=== PATIENT | female | born 1935 | race Caucasian/White ===

== ENCOUNTER 2017-07-30 20:24 | Emergency (ER) | payer MEDICARE, OTHER ==
[2017-07-30 21:05] LABS: Bilirubin Negative (Negative); Blood, Urine Negative (Negative); Clarity CLOUDY (Clear); Glucose, Urine (Dipstick) Negative (Negative); Leukocyte Moderate (Negative); Nitrite Positive (Negative); Protein, Urine (Dipstick) Negative (Neg-Trace); Specific Gravity, Urine 1.015 (1.002-1.036); Urobilinogen 0.2 mg/dL (0.2-1.0)
[2017-07-30 21:07] LABS: Bacteria/HPF 4+ HPF (None Seen); Hyaline Casts/LPF 0-3 HYALINE CAST LPF (0-3 Hyaline); Pathc Cast-AUWi Flag 0.13 (0-2.49); Squamous Epithelial 0-3 HPF (0-3); WBC/HPF 21-50 HPF (0-3)
[2017-07-30 21:13] LABS: Hemoglobin 14.3 g/dL (12.0-16.0); Mean Corpuscular HGB CONC 33.3 g/dL (32.0-36.0); Mean Corpuscular Hemoglobin 31.9 pg (27.0-31.0); Mean Corpuscular Volume 95.8 fl (81.0-99.0); Platelet Count 229 thou/uL (130-400); Red Blood Cell (RBC) Count 4.47 mill/uL (4.20-5.40); White Blood Cell (WBC) Count 5.7 thou/uL (4.8-10.8)
[2017-07-30 21:26] LABS: ALT (SGPT) 13 U/L (8-55); AST (SGOT) 13 U/L (5-34); Albumin 4.4 g/dL (3.4-4.8); Alkaline Phosphatase 96 U/L (40-150); Anion Gap 14 mmol/L (10-20); BUN (Urea Nitrogen) 13 mg/dL (9.8-20.1); Bilirubin, Total 0.6 mg/dL (0.2-1.2); CK (CPK) 32 U/L (29-168); Calc. Creatinine Clearance 0 mL/min (70-130); Calcium 10.8 mg/dL (7.8-10.44); Carbon Dioxide 26 mmol/L (23-31); Chloride 102 mmol/L (98-107); Estimated GFR-MDRD 73; Globulin 2.9 g/dL (2.4-3.5); Glucose 100 mg/dL (83-110); Potassium 4.9 mmol/L (3.5-5.1); Protein, Total 7.3 g/dL (6.0-8.3); Sodium 137 mmol/L (136-145)
[2017-07-30 21:30] LABS: Troponin I Less than 0.010 ng/mL (< 0.028)
[2017-07-30 21:44] LABS: Eosinophils 3 % (0-10); Lymphocytes 51 % (21-51); MDiff Complete? YES; Monocytes 4 % (0-10); Neutrophil 40 % (42-75); Reactive Lymphocytes 1 % (0-10)
[2017-07-30] MEDS ORDERED: cefTRIAXone\\ROCEPHIN 2 GM in Sodium Chloride 0.9% 100 ML IVPB SCH (23:45)
== END 2017-07-31 01:09 | disposition home or self-care (01) ==
LOC: ERS 20:24
DX: N39.0 Urinary tract infection, site not specified (principal); G62.9 Polyneuropathy, unspecified; E78.00 Pure hypercholesterolemia, unspecified; E11.9 Type 2 diabetes mellitus without complications
CPT/HCPCS: 36415; 80053; 81003; 81015; 82553; 84484; 85025; 87077; 87086; 87186; 93005; 96365; J0696; J7050

== ENCOUNTER 2017-08-05 11:14 | Inpatient (IN) | payer MEDICARE, OTHER ==
--- NOTE | 2017-08-05 12:18 | RAD ---
PORTABLE CHEST: History: Bradycardia and dizziness. FINDINGS: Heart size is within normal limits for portable technique. There are atherosclerotic changes of the a lane. Lungs are clear of any infiltrative process. IMPRESSION: Mild chronic lung change. Borderline heart size. POS: [facility]
[2017-08-05 12:48] LABS: #Lymphocytes 1.8 thou/uL (1.20-3.40); #Monocytes 0.4 thou/uL (0.11-0.59); %Basophils 0.7 % (0.0-1.0); %Eosinophils 0.8 % (0.0-10.0); %Lymphocytes 33.9 % (21.0-51.0); %Monocytes 7.2 % (0.0-10.0); %Neutrophils 57.3 % (42.0-75.0); Hemoglobin 12.6 g/dL (12.0-16.0); Mean Corpuscular HGB CONC 32.9 g/dL (32.0-36.0); Mean Corpuscular Hemoglobin 31.6 pg (27.0-31.0); Mean Corpuscular Volume 96.2 fl (81.0-99.0); Mean Platelet Volume 7.8 fL (7.4-10.4); Platelet Count 187 thou/uL (130-400); RBC Distribution Width 12.1 % (11.5-14.5); White Blood Cell (WBC) Count 5.2 thou/uL (4.8-10.8)
[2017-08-05] MEDS ORDERED: CEFAZOLIN 1 GM VIAL ONE ×2 (12:56)
--- NOTE | 2017-08-05 13:05 | HP ---
DATE OF ADMISSION: 08/05/2017 INDICATION FOR ADMISSION: An 82-year-old female with complete AV heart block with a heart rate in th e 30s. HISTORY OF PRESENT ILLNESS: This very pleasant 82-year-old female who was seen in her primary care p kandi's office today after having a recent urinary tract infection for which she was seen in the e mergency room last week. She had been on antibiotics and then she was noted to have bradycardia, was sent to the emergency room. EKG shows a third degree AV heart block with heart rates in the 30s. S he does not have any complaints at this time. She has been complaining of fatigue recently, but no c hest pain or any other significant problems. She does not have a history of hypertension, but does h ave a history of hypercholesterolemia and diabetes, no tobacco abuse. PAST MEDICAL HISTORY: Significant for a bilateral total knee replacements, hysterectomy, and diabete s for the last 20-25 years and history of Graves disease. SOCIAL HISTORY: She is a . She has 1 child with no heart disease except he has had some fast h eart rates in the past. I believe I have seen him also in the office. She has no history of alcohol or tobacco abuse. She is retired. FAMILY HISTORY: Unremarkable except for what is noted in the history her son. ALLERGIES: None. MEDICATIONS: Synthroid, metformin, aspirin, Lyrica and simvastatin. REVIEW OF SYSTEMS: A 12 point review of systems is unremarkable except what was noted in the history of present illness. She wears glasses. She has a chronic cough. She has diabetic neuropathy and a rthritis. PHYSICAL EXAMINATION: GENERAL: Reveals a well-developed, well-nourished, elderly female. VITAL SIGNS: Blood pressure 130/74, heart rate 35 and shows complete heart block, respiratory rate 1 6. She is afebrile. HEENT: Shows the head to be normocephalic, atraumatic. Carotid pulses are present. There are no br uits, no JVD. CHEST: Clear to auscultation without rales, rhonchi or wheezing. CARDIOVASCULAR: Exam reveals a severe bradycardia. I cannot hear any significant murmurs, heaves, t hrills, bruits or rubs. ABDOMEN: Shows obesity with positive bowel sounds. No organomegaly or masses are noted. Femoral pu lses are present. EXTREMITIES: Showed no clubbing, cyanosis or edema. Pedal pulses are present. NEUROLOGIC: The patient remains intact. SKIN: Warm and dry. EKG shows third degree heart block as noted above with a heart rate in the 30s. IMPRESSION: 1. A third degree heart block for which she will undergo urgent pacemaker implantation. I have disc ussed with her and explained the procedure and the risks to include bleeding, infection, possibility of pneumothorax, hemothorax or pericardial tamponade even the possibility of and infection. Jose Manuel curtis understands and agrees to proceed. 2. Hypercholesterolemia. We will continue on her simvastatin 3. Diabetes. She will continue on those medications with her metformin. 4. History of diabetic neuropathy for which she takes Lyrica. This will be filled by the primary ca re physician. 5. Hypothyroidism after having an episode of Graves' disease many years ago. She will continue on h er Synthroid once we know the normal doses of her medications. If she remains stable, there is a possibility after the pacemaker insertion she could be discharged l ater today or she could most likely spent the night and go home tomorrow.
[2017-08-05] MEDS ORDERED: Gentamicin 80 MG/2 ML VIAL ONE (13:13)
[2017-08-05] MEDS ORDERED: Lidocaine 1% (PF) 30 ML VIAL ONE (13:13)
[2017-08-05 13:16] LABS: ALT (SGPT) 12 U/L (8-55); AST (SGOT) 11 U/L (5-34); Albumin 3.9 g/dL (3.4-4.8); Alkaline Phosphatase 94 U/L (40-150); Anion Gap 15 mmol/L (10-20); BUN (Urea Nitrogen) 11 mg/dL (9.8-20.1); Bilirubin, Total 0.4 mg/dL (0.2-1.2); Calc. Creatinine Clearance 0 mL/min (70-130); Calcium 10.1 mg/dL (7.8-10.44); Carbon Dioxide 21 mmol/L (23-31); Chloride 101 mmol/L (98-107); Estimated GFR-MDRD 78; Globulin 2.5 g/dL (2.4-3.5); Glucose 116 mg/dL (83-110); Potassium 4.6 mmol/L (3.5-5.1); Protein, Total 6.4 g/dL (6.0-8.3); Sodium 132 mmol/L (136-145)
[2017-08-05 13:22] LABS: CKMB 1.5 ng/mL (0-6.6); Troponin I 0.022 ng/mL (< 0.028)
[2017-08-05] MEDS ORDERED: Spironolactone 25 MG TAB PO PRN (15:43)
[2017-08-05] MEDS: metFORMIN 500 MG TAB PO SCH (18:01)
--- NOTE | 2017-08-05 18:08 | RAD ---
PORTABLE CHEST: 08/05/17 HISTORY: Post pacemaker placement. Comparison made to film earlier today. FINDINGS/IMPRESSION: Dual lead pacemaker is in place via the left subclavian vein. Leads appear in adequate position. No p neumothorax or other acute lung process identified. No significant interval change. POS: [facility]
[2017-08-05 19:26] VITALS: BMI 31.3
[2017-08-05] MEDS: Acetaminophen/Codeine 30-300mg Tablet PO PRN (20:26)
[2017-08-05] MEDS: Phenazopyridine HCl 97.5 MG TABLET PO SCH (20:38)
[2017-08-05] MEDS ORDERED: FLU VACC TS2017-18 (>65YR) 0.5 ML SYRINGE IM ONE (20:45)
[2017-08-05] MEDS ORDERED: Simvastatin 40 MG TAB PO SCH (21:00)
--- NOTE | 2017-08-05 21:50 | EKG ---
Test Reason : POST PACEMAKER INSER Blood Pressure : / mmHG Vent. Rate : 082 BPM Atrial Rate : 079 BPM P-R Int : 088 ms QRS Dur : 186 ms QT Int : 480 ms P-R-T Axes : 000 -64 105 degrees QTc Int : 560 ms AV sequential or dual chamber electronic pacemaker When compared with ECG of 30-JUL-2017 20:33, (Unconfirmed) Electronic ventricular pacemaker has replaced Sinus rhythm Confirmed by JOAQUIN KERR ([id number]) on 08/05/2017 9:50:13 PM Referred By: LEAH Confirmed By:JOAQUIN KERR
[2017-08-05 23:13] LABS: Bilirubin Negative (Negative); Blood, Urine Negative (Negative); Clarity CLEAR (Clear); Glucose, Urine (Dipstick) Negative (Negative); Leukocyte Negative (Negative); Nitrite Negative (Negative); Protein, Urine (Dipstick) Negative (Neg-Trace); Urobilinogen 0.2 mg/dL (0.2-1.0)
[2017-08-06] MEDS: Acetaminophen/Codeine 30-300mg Tablet PO PRN (01:38)
[2017-08-06] MEDS ORDERED: Levothyroxine 175 MCG TAB PO SCH (06:00)
--- NOTE | 2017-08-06 08:36 | PDOC.CTH ---
<Nataly Raya - Last Filed: 08/06/17 08:32> Cardiology Progress Note - Subjective The pt seen and examined. No overnight events. No cardiac complaints. She stated she has a sling at home and would like to use it at night to prevent raising her Lt arm above her shoulder. She lives alone at home. - Objective Vital Signs Temp Pulse Resp BP Pulse Ox 08/06/17 07:54 98.1 F 79 16 138/74 99 08/06/17 03:47 98.2 F 81 18 128/61 99 08/06/17 00:00 97.9 F 81 14 133/62 98 Weight 199 lb 14.4 oz 08/05/17 08/06/17 08/07/17 06:59 06:59 06:59 Intake Total 600 Balance 600 - Physical Examination General/Neuro: alert & oriented x3 Neck: no JVD present Lungs: CTA Heart: RRR Abdomen: soft Extremities: other: (No edema) - Telemetry Telemetry Rhythm: AV paced - Labs Result Diagrams: 08/05/17 12:35 08/05/17 12:35 Troponin/CKMB CK-MB (CK-2) 1.5 ng/mL (0-6.6) 08/05/17 12:35 Troponin I 0.022 ng/mL (< 0.028) 08/05/17 12:35 - Assessment/Plan 1. S/p Dual PM placement on 08/05/17 secondary to complete AVB - stable; no pnuemothrax on CXR. Mild hematoma with no swelling or drainage. She denied any pain at the site. 2. Hyperlipidemia - on statin 3. DM type 2 - stable 4. Hypothyroidism - on Levothyroxin; MAR reviewed * The pt is stable to d/c home. [employer] will call the pt within 2 days for [employer] device. * The pt will f/u with nurse @ Dr Allen' office within 7-10 days for the PM site check * PM education given to the pt Review of Systems - Review of Systems Constitutional: reports: no symptoms reported EENTM: reports: no symptoms reported Respiratory: reports: no symptoms reported Cardiac (ROS): reports: no symptoms reported ABD/GI: reports: no symptoms reported : reports: no symptoms reported Musculoskeletal: reports: no symptoms reported <Chiqui Allen - Last Filed: 08/06/17 09:48> Cardiology Progress Note - Objective Vital Signs Temp Pulse Resp BP Pulse Ox 08/06/17 08:00 98.1 F 79 16 99 08/06/17 07:54 98.1 F 79 16 138/74 99 08/06/17 03:47 98.2 F 81 18 128/61 99 08/06/17 00:00 97.9 F 81 14 133/62 98 Weight 199 lb 14.4 oz 08/05/17 08/06/17 08/07/17 06:59 06:59 06:59 Intake Total 600 Balance 600 - Labs Result Diagrams: 08/05/17 12:35 08/05/17 12:35 Troponin/CKMB CK-MB (CK-2) 1.5 ng/mL (0-6.6) 08/05/17 12:35 Troponin I 0.022 ng/mL (< 0.028) 08/05/17 12:35 - Assessment/Plan pt. seen and eval. by me. i agree with the A/P by the SL[employer] AMBASS[employer]OR. She is pacing 100% in the A and V. chest clear,RRR. I will see her in a week in the office,
[2017-08-06] MEDS: metFORMIN 500 MG TAB PO SCH (08:42)
[2017-08-06] MEDS: Phenazopyridine HCl 97.5 MG TABLET PO SCH (08:42)
[2017-08-06] MEDS ORDERED: Pregabalin 75 MG CAP PO SCH (09:00)
[2017-08-06] MEDS ORDERED: Aspirin 81 mg Enteric Coated Tablet PO SCH (09:00)
[2017-08-06] MEDS ORDERED: Prevnar 13-Val Conj/PF 0.5 ML SYRINGE IM ONE (09:00)
[2017-08-06] MEDS ORDERED: Furosemide 20 MG TAB PO SCH (09:00)
[2017-08-06 11:38] VITALS: BP 138/69; TEMP 97.9
--- NOTE | 2017-08-06 14:13 | DIS ---
ADMITTING DIAGNOSES: Complete third-degree arteriovenous heart block which was required. Otherwise, she has a history also of a recent urinary tract infection, history of hypertension. DISCHARGE DIAGNOSES: Complete third-degree arteriovenous heart block which was required. Otherwise, she has a history also of a recent urinary tract infection, history of hypertension. PROCEDURES IN HOSPITAL: Included dual-chamber pacemaker insertion. DISCHARGE MEDICATIONS: Tylenol Extra Strength 1-2 tablets q.6 h. p.r.n. for pain, aspirin 81 mg a da y, Lasix 20 mg p.o. q.a.m., levothyroxine 175 mcg every day, metformin 500 mg b.i.d. Pyridium 195 mg 3 times daily, Lyrica 75 mg p.o. daily, simvastatin 40 mg at bedtime, Aldactone 25 mg p.o. daily p.r. n. as needed. FOLLOW UP: To follow up with me in the office in the next 7-10 days for wound check. She will recei ve information on equipment by mail to check her pacemaker over the telephone. She will continue her routine followups with Dr. Castelan. HOSPITAL COURSE: This very pleasant, elderly lady presented to her primary care physician's office w ith severe bradycardia. She was advised to go to the emergency room, she actually drove herself to [facility]. When she arrived, she had heart rates into the 30s with complete AV heart block. She w as advised to undergo urgent pacemaker insertion. This was performed without difficulties or complic ations. There was no pneumothorax or hemothorax noted on the chest x-ray. She has been stable. She is pacing 100% after the procedure, both in the atrium and ventricle and has had no further complica tions. She is ready for discharge today and I will see her back in the office as noted above to cont inue to monitor the pacemaker which will also be monitored transtelephonically. There was no complic ations or difficulties throughout her hospital stay.
--- NOTE | 2017-08-08 09:24 | EKG ---
Test Reason : Blood Pressure : / mmHG Vent. Rate : 080 BPM Atrial Rate : 080 BPM P-R Int : 200 ms QRS Dur : 180 ms QT Int : 478 ms P-R-T Axes : 066 -63 102 degrees QTc Int : 551 ms AV sequential or dual chamber electronic pacemaker When compared with ECG of 05-AUG-2017 15:49, Vent. rate has decreased BY 2 BPM Confirmed by JOAQUIN KERR ([id number]) on 08/08/2017 9:23:43 AM Referred By: LEAH Confirmed By:JOAQUIN KERR
--- NOTE | 2017-09-04 17:45 | EKG ---
Test Reason : ER NDICATION Blood Pressure : / mmHG Vent. Rate : 034 BPM Atrial Rate : 038 BPM P-R Int : 000 ms QRS Dur : 084 ms QT Int : 504 ms P-R-T Axes : 052 028 102 degrees QTc Int : 378 ms Complete Heart Block Abnormal ECG Confirmed by JULIAN SHETTY MD ([id number]), writer editor [employer] ([id number]) on 09/04/2017 5:45:20 PM Referred By: Confirmed By:JULIAN SHETTY MD
== END 2017-08-06 13:05 | disposition home or self-care (01) | DRG 244 ==
LOC: ERS 11:14 → 2NO 12:52 → CCL 12:52 → ERHOLD 14:06 → 2NO 14:45
PROVIDERS: ADMIT Internal Medicine Cardiovascular Disease; ATTEND Internal Medicine Cardiovascular Disease
PROC: 0JH606Z Insertion of Pacemaker, Dual Chamber into Chest Subcutaneous Tissue and Fascia, Open Approach (ICD-10-PCS; principal; 2017-08-05)
PROC: 02H63JZ Insertion of Pacemaker Lead into Right Atrium, Percutaneous Approach (ICD-10-PCS; 2017-08-05)
PROC: 02HK3JZ Insertion of Pacemaker Lead into Right Ventricle, Percutaneous Approach (ICD-10-PCS; 2017-08-05)
DX: I44.2 Atrioventricular block, complete (principal); E11.40 Type 2 diabetes mellitus with diabetic neuropathy, unspecified; E78.5 Hyperlipidemia, unspecified; E03.9 Hypothyroidism, unspecified
CPT/HCPCS: 33208; 36415; 36416; 71045; 80053; 81003; 82553; 84484; 85025; 87086; 90471; 90670; 93005; 93010; 93798; C1785; C1898; G0009; J0690; J1580; J2001

== ENCOUNTER 2017-10-07 13:36 | Outpatient (CLI) | payer MEDICARE, OTHER ==
--- NOTE | 2017-10-07 14:38 | RAD ---
TWO VIEWS OF THE CHEST: COMPARISON: 08/05/17. HISTORY: Dyspnea. FINDINGS: Two views of the chest show a normal-size cardiomediastinal silhouette. The pacemaker is unchanged i n position. There is no evidence of consolidation, mass, or pleural effusion. Degenerative changes are seen in the spine. IMPRESSION: No evidence of acute cardiopulmonary disease. POS: [facility]
== END 2017-10-07 13:37 | disposition home or self-care (01) ==
LOC: RAD 13:36
PROVIDERS: ATTEND Internal Medicine Critical Care Medicine
DX: R06.00 Dyspnea, unspecified (principal)
CPT/HCPCS: 71046

== ENCOUNTER 2017-10-12 10:55 | Emergency (ER) | payer MEDICARE, OTHER ==
[2017-10-12 12:19] LABS: #Basophils 0.1 thou/uL (0.0-0.2); #Lymphocytes 1.8 thou/uL (1.20-3.40); #Monocytes 0.9 thou/uL (0.11-0.59); #Neutrophils 5.1 thou/uL (1.40-6.50); %Basophils 0.8 % (0.0-1.0); %Eosinophils 0.4 % (0.0-10.0); %Lymphocytes 22.4 % (21.0-51.0); %Monocytes 11.2 % (0.0-10.0); %Neutrophils 65.1 % (42.0-75.0); Hemoglobin 13.2 g/dL (12.0-16.0); Mean Corpuscular HGB CONC 33.5 g/dL (32.0-36.0); Mean Corpuscular Volume 92.4 fl (81.0-99.0); Mean Platelet Volume 6.4 fL (7.4-10.4); Platelet Count 177 thou/uL (130-400); RBC Distribution Width 12.2 % (11.5-14.5); Red Blood Cell (RBC) Count 4.25 mill/uL (4.20-5.40); White Blood Cell (WBC) Count 7.9 thou/uL (4.8-10.8)
[2017-10-12 12:47] LABS: ALT (SGPT) 10 U/L (8-55); AST (SGOT) 12 U/L (5-34); Albumin 3.8 g/dL (3.4-4.8); Alkaline Phosphatase 102 U/L (40-150); Anion Gap 13 mmol/L (10-20); BUN (Urea Nitrogen) 14 mg/dL (9.8-20.1); Bilirubin, Total 0.6 mg/dL (0.2-1.2); CK (CPK) 95 U/L (29-168); Calc. Creatinine Clearance 0 mL/min (70-130); Calcium 10.1 mg/dL (7.8-10.44); Carbon Dioxide 22 mmol/L (23-31); Chloride 102 mmol/L (98-107); Estimated GFR-MDRD 73; Glucose 164 mg/dL (83-110); Lipase 6 U/L (8-78); Protein, Total 6.8 g/dL (6.0-8.3); Sodium 133 mmol/L (136-145)
[2017-10-12 12:53] LABS: CKMB 1.7 ng/mL (0-6.6); Troponin I Less than 0.010 ng/mL (< 0.028)
--- NOTE | 2017-10-12 13:22 | RAD ---
CHEST 1 VIEW: Date: 10/12/17 HISTORY: Body aches, chest pain. COMPARISON: Chest 2 views dated 10/07/17. FINDINGS: Dual lead pacer is present. Mild blunting left lateral costophrenic sulcus. No pneumothorax. Lungs ar e slightly hyperinflated. IMPRESSION: Mild blunting left lateral costophrenic sulcus may reflect sequelae of small effusion or atelectasis. POS: [facility]
[2017-10-12 13:59] LABS: Bilirubin Negative (Negative); Blood, Urine Small (Negative); Clarity CLOUDY (Clear); Glucose, Urine (Dipstick) Negative (Negative); Leukocyte Large (Negative); Nitrite Positive (Negative); Protein, Urine (Dipstick) 30 mg/dL (Neg-Trace); Specific Gravity, Urine 1.023 (1.002-1.036)
[2017-10-12 14:04] LABS: Bacteria/HPF 4+ HPF (None Seen); Hyaline Casts/LPF 4-6 HYALINE CAST LPF (0-3 Hyaline); Pathc Cast-AUWi Flag 1.16 (0-2.49); Squamous Epithelial 0-3 HPF (0-3)
[2017-10-12 14:13] LABS: RBC/HPF 0-3 HPF (0-3)
[2017-10-12] MEDS ORDERED: Ciprofloxacin 500 MG TAB ONE (14:34)
--- NOTE | 2017-11-20 22:22 | EKG ---
Test Reason : Blood Pressure : / mmHG Vent. Rate : 085 BPM Atrial Rate : 085 BPM P-R Int : 146 ms QRS Dur : 178 ms QT Int : 444 ms P-R-T Axes : 000 -58 101 degrees QTc Int : 528 ms AV dual-paced rhythm No STEMI Abnormal ECG Confirmed by KARIS SIMMONS D.O. ([id number]), market editor [employer] ([id number]) on 11/20/2017 10:22:20 PM Referred By: Confirmed By:KARIS SIMMONS D.O.
== END 2017-10-12 14:45 | disposition home or self-care (01) ==
LOC: ERS 10:55
DX: N39.0 Urinary tract infection, site not specified (principal); E11.40 Type 2 diabetes mellitus with diabetic neuropathy, unspecified; Z79.82 Long term (current) use of aspirin; Z79.899 Other long term (current) drug therapy
CPT/HCPCS: 36415; 71045; 80053; 81003; 81015; 82550; 82553; 83690; 84484; 85025; 93005; 94760

== ENCOUNTER 2018-06-03 12:26 | Emergency (ER) | payer MEDICARE, OTHER ==
--- NOTE | 2018-06-03 13:50 | RAD ---
3 VIEW LUMBAR SPINE: Date: 06/03/18 INDICATION: Low back pain, hip pain. FINDINGS: Reference made to 08/10/16. No obvious interval acute compression fracture. Skeletal structures appear demineralized. No obvious subluxation. Multilevel moderate degenerative change present. There is atherosclerosis. Mild levocurv ature of lumbar spine present. IMPRESSION: Degenerative changes and osseous demineralization. No definite acute compression fracture or signific ant subluxation. POS: [facility]
[2018-06-03] MEDS ORDERED: Ketorolac Tromethamine 30 MG/ML VIAL ONE (13:51)
--- NOTE | 2018-06-03 13:51 | RAD ---
AP PELVIS 1 VIEW: Date: 06/03/18 HISTORY: 83-year-old female with low back pain and right hip pain. History of spinal stenosis and diabetes. FINDINGS/IMPRESSION: Mild degenerative change. Bone demineralization. No acute fracture or dislocation. POS: [facility]
--- NOTE | 2018-06-03 13:51 | RAD ---
RIGHT HIP SERIES: Date: 06/03/18 INDICATION: Right hip pain. FINDINGS: No fracture or dislocation. Mild degenerative change is present. IMPRESSION: No acute osseous abnormality of right hip. POS: [facility]
== END 2018-06-03 14:26 | disposition home or self-care (01) ==
LOC: ERS 12:26
DX: M25.551 Pain in right hip (principal); M54.5 Low back pain; E11.40 Type 2 diabetes mellitus with diabetic neuropathy, unspecified; E78.00 Pure hypercholesterolemia, unspecified; Z79.899 Other long term (current) drug therapy; Z79.82 Long term (current) use of aspirin; Z79.84 Long term (current) use of oral hypoglycemic drugs
CPT/HCPCS: 72100; 72170; 96372; J1885

== ENCOUNTER 2018-07-29 07:10 | Day surgery (SDC) | payer MEDICARE, OTHER ==
[2018-07-28 12:27] VITALS: BMI 30.5
[2018-07-29 08:35] VITALS: BP 126/82; TEMP 97.6
--- NOTE | 2018-07-29 09:56 | RAD ---
LUMBAR MYELOGRAM: HISTORY: Low back pain with radiculopathy. FINDINGS: After explaining the procedure and answering all questions, the lower back was prepped and draped in the usual sterile fashion. Sterile technique, buffered local anesthesia, fluoroscopic guidance, and a posterior L1-L2 approach were used to carefully advance a 22-gauge spinal needle to the thecal sac. Approximately 10 mL of [id number]-200M was then injected into the thecal sac, under fluoroscopic contro l. The needle was removed. The patient tolerated the procedure well and was transferred to CT in go od condition for further imaging. FLUOROSCOPY TIME: 0.4 minutes IMPRESSION: Technically successful lumbar myelogram. CT is pending. POS: [facility]
--- NOTE | 2018-07-29 10:38 | CT ---
CT MYELOGRAM OF LUMBAR SPINE WITH CONTRAST: INDICATIONS: Lumbar radiculopathy. FINDINGS: Please reference the procedural details regarding the report of the technical parameters of the lumba r myelogram. There is mild, likely chronic, superior endplate height loss of L1. Multilevel endplate degenerative changes are present, and there is multilevel gas vacuum phenomenon. Grade 1 spondylolisthesis at L4 -L5 is present, and there is trace retrolisthesis of L1 on L2. L5-S1: No high-grade central canal or foraminal stenosis. L4-L5: Disk osteophyte mildly effaces the ventral thecal sac without high-grade central canal stenos is. There is mild to moderate bilateral neural foraminal narrowing. L3-L4: There is moderate central canal stenosis, as a result of disk osteophyte formation. Mild danyelle ateral neural foraminal narrowing is seen. L2-L3: There is moderate to severe central canal stenosis on the basis of broad-based disk osteophyt e. Moderate right and mild left neural foraminal narrowing is present. L1-L2: No high-grade central canal or neural foraminal stenosis. Slight effacement of the thecal sa c due to disk osteophyte. There is multilevel prominent bilateral facet degenerative hypertrophy throughout the lumbar spine. Incidental note of hypodensity in the right kidney, likely a cyst. IMPRESSION: Multilevel degenerative changes throughout the lumbar spine, most pronounced at L2-L3, with moderate central canal stenosis. POS: [facility]
[2018-07-29] MEDS ORDERED: Iopamidol-M 200 41% 20 ML VIAL ONE (16:32)
== END 2018-07-29 10:15 | disposition home or self-care (01) ==
LOC: RAD 07:10
PROVIDERS: ATTEND Neurological Surgery
PROC: B01B1ZZ Fluoroscopy of Spinal Cord using Low Osmolar Contrast (ICD-10-PCS; principal; 2018-07-29)
DX: M54.16 Radiculopathy, lumbar region (principal); Z91.09 Other allergy status, other than to drugs and biological substances; Z88.1 Allergy status to other antibiotic agents; Z79.84 Long term (current) use of oral hypoglycemic drugs; Z79.82 Long term (current) use of aspirin; Z79.899 Other long term (current) drug therapy
CPT/HCPCS: 62304; 72132; Q9966

== ENCOUNTER 2018-09-13 09:16 | Outpatient (CLI) | payer MEDICARE, OTHER ==
--- NOTE | 2018-09-13 10:51 | ULT ---
RIGHT UPPER QUADRANT ULTRASOUND: INDICATIONS: Hepatic cyst. Followup. FINDINGS: There are scattered foci of decreased echogenicity within the hepatic parenchyma, the largest of whic h measures approximately 3 cm. In addition, there is a focus of increased echogenicity with an adjac ent punctate calcification within the central region of the liver, which measures 1.7 x 2.2 cm x a le ngth of 4.3 cm. The common duct is within normal limits in size for the patient's age, at 7 mm. No acute gallbladder pathology is visualized. Incidental note of right renal cyst. IMPRESSION: Scattered foci of decreased echogenicity of the hepatic parenchyma, indicating cyst, with an addition al nonspecific hyperechoic focus. Findings may be further assessed with pre and post contrast CT of the abdomen. POS: [facility]
--- NOTE | 2018-09-19 13:21 | MMO ---
Bilateral MAMMO Bilat Screen [facility]. CLINICAL HISTORY: Patient is 83 years old and is seen for screening. The patient has no family history of breast cancer. The patient has no personal history of cancer. The patient has a history of right Excisional Biopsy in Jun 2002 - Benign. VIEWS: The views performed were: bilateral craniocaudal with tomosynthesis and bilateral mediolateral oblique with tomosynthesis. FILMS COMPARED: The present examination has been compared to prior imaging studies performed at [facility] on 06/23/2001, 06/26/2002, 12/25/2002, 06/27/2003, 07/01/2004, 07/09/2005, 07/19/2006, 07/20/2007, 07/26/2008, 07/29/2009, 08/05/2010, 07/29/2011, 08/09/2012, 08/10/2013, 08/14/2014, 08/15/2015 and 08/25/2016. MAMMOGRAM FINDINGS: There are scattered fibroglandular densities. Finding 1: There are stable nodules seen in both breasts. Finding 2: There are benign appearing calcifications seen in both breasts. Finding 3: There is a stable post-surgical scar seen in the right breast. There are no suspicious masses, calcifications or areas of architectural distortion. IMPRESSION: THERE IS NO MAMMOGRAPHIC EVIDENCE OF MALIGNANCY. A ROUTINE FOLLOW-UP MAMMOGRAM IN 1 YEAR IS RECOMMENDED. THE RESULTS OF THIS EXAM WERE SENT TO THE PATIENT. ACR BI-RADS Category 2 - Benign finding MAMMOGRAPHY NOTE: 1. A negative mammogram report should not delay a biopsy if a dominant of clinically suspicious mass is present. 2. Approximately 10% to 15% of breast cancers are not detected by mammography. 3. Adenosis and dense breasts may obscure an underlying neoplasm.
== END 2018-09-13 09:17 | disposition home or self-care (01) ==
LOC: BICULT 09:16
PROVIDERS: ATTEND Internal Medicine
DX: Z12.31 Encounter for screening mammogram for malignant neoplasm of breast (principal); K76.89 Other specified diseases of liver; R93.2 Abnormal findings on diagnostic imaging of liver and biliary tract
CPT/HCPCS: 76705; 77063; 77067

== ENCOUNTER 2019-01-10 10:01 | Outpatient (CLI) | payer MEDICARE, OTHER ==
--- NOTE | 2019-01-10 12:17 | RAD ---
CHEST PA AND LATERAL: Date: 01/10/19 INDICATION: History of dyspnea. COMPARISON: Prior exam dated 10/07/17. FINDINGS: Emphysematous change is stable. Dual lead pacemaker is unchanged. Mild cardiomegaly is stable. Chroni c osseous changes are stable. IMPRESSION: Stable emphysema. POS: [facility]
== END 2019-01-10 10:02 | disposition home or self-care (01) ==
LOC: RAD 10:01
PROVIDERS: ATTEND Internal Medicine Critical Care Medicine
DX: R06.00 Dyspnea, unspecified (principal); J43.9 Emphysema, unspecified
CPT/HCPCS: 71046

== ENCOUNTER 2019-10-26 10:08 | Outpatient (CLI) | payer MEDICARE, OTHER ==
--- NOTE | 2019-10-26 11:09 | MMO ---
Bilateral MAMMO Bilat Screen [facility]. CLINICAL HISTORY: Patient is 84 years old and is seen for screening. The patient has no family history of breast cancer. The patient has no personal history of cancer. The patient has a history of right Excisional Biopsy in Jun 2002 - Benign. VIEWS: The views performed were: bilateral craniocaudal with tomosynthesis; bilateral mediolateral oblique with tomosynthesis; and left mediolateral oblique. FILMS COMPARED: The present examination has been compared to prior imaging studies performed at [facility] on 08/14/2014, 08/15/2015, 08/25/2016 and 09/13/2018. This study has been interpreted with the assistance of computer-aided detection. MAMMOGRAM FINDINGS: Finding 1: There are stable nodules seen in both breasts. Finding 2: There are benign appearing calcifications seen in both breasts. Finding 3: There is a stable post-surgical scar seen in the right breast. There are no suspicious masses, suspicious calcifications, or new areas of architectural distortion. IMPRESSION: THERE IS NO MAMMOGRAPHIC EVIDENCE OF MALIGNANCY. A ROUTINE FOLLOW-UP MAMMOGRAM IN 1 YEAR IS RECOMMENDED. THE RESULTS OF THIS EXAM WERE SENT TO THE PATIENT. ACR BI-RADS Category 2 - Benign finding MAMMOGRAPHY NOTE: 1. A negative mammogram report should not delay a biopsy if a dominant of clinically suspicious mass is present. 2. Approximately 10% to 15% of breast cancers are not detected by mammography. 3. Adenosis and dense breasts may obscure an underlying neoplasm. Reported by: Gabriele GORMAN Electonically Signed: [id number]
== END 2019-10-26 10:09 | disposition home or self-care (01) ==
LOC: BICMAMMO 10:08
PROVIDERS: ATTEND Internal Medicine
DX: Z12.31 Encounter for screening mammogram for malignant neoplasm of breast (principal); Z91.89 Other specified personal risk factors, not elsewhere classified
CPT/HCPCS: 77063; 77067

== ENCOUNTER 2020-09-19 10:08 | Outpatient (CLI) | payer MEDICARE, OTHER ==
[2020-09-19 12:41] LABS: Bilirubin Neg (Negative); Blood, Urine Negative (Negative); Clarity Slightly Cloudy (Clear); Glucose, Urine (Dipstick) Normal (Negative); Ketone, Urine Negative (Negative); Leukocyte 100 (Negative); Nitrite Positive (Negative); Protein, Urine (Dipstick) Negative (Neg-Trace); Urobilinogen Normal mg/dL (Less than 2)
[2020-09-19 12:42] LABS: Anion Gap 14 mmol/L (10-20); BUN (Urea Nitrogen) 16 mg/dL (9.8-20.1); Calc. Creatinine Clearance 0 mL/min (70-130); Calcium 10.1 mg/dL (7.8-10.44); Carbon Dioxide 23 mmol/L (23-31); Chloride 106 mmol/L (98-107); Glucose 184 mg/dL (83-110); Potassium 3.9 mmol/L (3.5-5.1); Sodium 139 mmol/L (136-145)
[2020-09-19 12:43] LABS: #Basophils 0.1 10x3/uL (0.0-0.2); #Eosinphils 0.2 10x3/uL (0.0-0.5); #Monocytes 0.3 10x3/uL (0.0-1.1); #Neutrophils 2.3 10x3/uL (1.5-8.4); %Basophils 1.5 % (0.0-2.0); %Eosinophils 4.7 % (0.0-6.0); %Lymphocytes 38.5 % (18.0-47.0); %Monocytes 6.4 % (0.0-10.0); %Neutrophils 48.7 % (40.0-75.0); Hemoglobin 12.2 g/dL (12.0-15.5); Mean Corpuscular HGB CONC 32.3 g/dL (32.0-36.0); Mean Corpuscular Volume 95.9 fl (81.6-98.3); Platelet Count 182 10x3/uL (150-450); RBC Distribution Width 13.3 % (11.5-14.5); Red Blood Cell (RBC) Count 3.94 10x6/uL (3.90-5.03); White Blood Cell (WBC) Count 4.7 10x3/uL (3.5-10.5)
[2020-09-19 13:24] LABS: Bacteria/HPF 3+ HPF (None Seen); Calcium Oxalate Crystals 1+ HPF (None Seen); RBC/HPF 0-3 HPF (0-3); Squamous Epithelial 0-3 HPF (0-3)
[2020-09-19 22:32] LABS: SARS-CoV-2 PCR by NAA Not Detected (NotDetected)
== END 2020-09-19 10:09 | disposition home or self-care (01) ==
LOC: LABBT 10:08
PROVIDERS: ATTEND Orthopaedic Surgery Hand Surgery
DX: Z01.818 Encounter for other preprocedural examination (principal); M65.332 Trigger finger, left middle finger; M65.342 Trigger finger, left ring finger; Z20.822 Contact with and (suspected) exposure to COVID-19
CPT/HCPCS: 80048; 81001; 85025; 93005; U0003; U0005; 87635; 93010

== ENCOUNTER 2020-09-24 08:01 | Day surgery (SDC) | payer MEDICARE, OTHER ==
[2020-09-20 13:38] VITALS: BMI 30.5
[2020-09-24] MEDS ORDERED: Betamet Acet/Betamet Na Ph 30 MG/5 ML VIAL ONE (09:40)
[2020-09-24] MEDS ORDERED: Bupivacaine PF 0.5% 30 ML VIAL ONE (09:40)
[2020-09-24] MEDS ORDERED: Bacitracin Zinc Ointment 30 gm TUBE ONE (09:40)
[2020-09-24] MEDS ORDERED: Sodium Chloride 0.9% 0 ML ONE (09:40)
[2020-09-24] MEDS ORDERED: Fentanyl 100 MCG/2 ML VIAL ONE (09:48)
[2020-09-24] MEDS ORDERED: PROPOFOL 200 MG/20 ML VIAL ONE (10:10)
[2020-09-24] MEDS ORDERED: Lidocaine 1% PF 5 ML VIAL ONE (10:10)
[2020-09-24] MEDS ORDERED: Ondansetron PF 4 MG/2 ML Vial ONE (10:10)
[2020-09-24] MEDS ORDERED: Ketorolac Tromethamine 30 MG/ML VIAL ONE (11:12)
== END 2020-09-24 12:45 | disposition home or self-care (01) ==
LOC: SDC 08:01
PROVIDERS: ATTEND Orthopaedic Surgery Hand Surgery
PROC: 0LB80ZZ Excision of Left Hand Tendon, Open Approach (ICD-10-PCS; principal; 2020-09-24)
PROC: 0LB80ZZ Excision of Left Hand Tendon, Open Approach (ICD-10-PCS; 2020-09-24)
DX: M65.842 Other synovitis and tenosynovitis, left hand (principal); M65.332 Trigger finger, left middle finger; M65.342 Trigger finger, left ring finger; E11.9 Type 2 diabetes mellitus without complications; E78.5 Hyperlipidemia, unspecified; E03.9 Hypothyroidism, unspecified; M19.90 Unspecified osteoarthritis, unspecified site; Z79.82 Long term (current) use of aspirin; Z79.84 Long term (current) use of oral hypoglycemic drugs; Z79.899 Other long term (current) drug therapy; Z88.1 Allergy status to other antibiotic agents; Z91.048 Other nonmedicinal substance allergy status; Z95.0 Presence of cardiac pacemaker; Z96.651 Presence of right artificial knee joint
CPT/HCPCS: 88304; J0690; J0702; J1885; J2405; J2704; J3010; J3490; S0020

== ENCOUNTER 2020-12-30 14:27 | Emergency (ER) | payer MEDICARE, OTHER ==
[2020-12-30 17:05] LABS: #Basophils 0.1 thou/uL (0.0-0.2); #Eosinphils 0.1 thou/uL (0.0-0.7); #Lymphocytes 2.9 thou/uL (1.20-3.40); #Monocytes 0.4 thou/uL (0.11-0.59); #Neutrophils 2.4 thou/uL (1.40-6.50); %Basophils 0.9 % (0.0-1.0); %Eosinophils 2.1 % (0.0-10.0); %Lymphocytes 48.4 % (21.0-51.0); %Monocytes 7.4 % (0.0-10.0); %Neutrophils 41.3 % (42.0-75.0); Mean Corpuscular HGB CONC 33.3 g/dL (32.0-36.0); Mean Corpuscular Hemoglobin 32.2 pg (27.0-31.0); Mean Corpuscular Volume 96.8 fL (78.0-98.0); Mean Platelet Volume 7.6 fL (7.4-10.4); Platelet Count 184 thou/uL (130-400); RBC Distribution Width 12.6 % (11.5-14.5); Red Blood Cell (RBC) Count 4.04 mill/uL (4.20-5.40); White Blood Cell (WBC) Count 5.9 thou/uL (4.8-10.8)
[2020-12-30 17:19] LABS: ALT (SGPT) 14 U/L (8-55); AST (SGOT) 12 U/L (5-34); Alkaline Phosphatase 109 U/L (40-110); Anion Gap 15 mmol/L (10-20); BUN (Urea Nitrogen) 12 mg/dL (9.8-20.1); Bilirubin, Total 0.3 mg/dL (0.2-1.2); CK (CPK) 41 U/L (29-168); Calc. Creatinine Clearance 0 mL/min (70-130); Calcium 10.1 mg/dL (7.8-10.44); Carbon Dioxide 19 mmol/L (23-31); Chloride 107 mmol/L (98-107); Globulin 2.7 g/dL (2.4-3.5); Glucose 114 mg/dL (83-110); Potassium 4.1 mmol/L (3.5-5.1); Protein, Total 6.7 g/dL (5.8-8.1); Sodium 137 mmol/L (136-145)
== END 2020-12-30 17:45 | disposition home or self-care (01) ==
LOC: ERS 14:27
DX: M79.661 Pain in right lower leg (principal); D50.9 Iron deficiency anemia, unspecified; E11.40 Type 2 diabetes mellitus with diabetic neuropathy, unspecified; Z79.82 Long term (current) use of aspirin; Z79.84 Long term (current) use of oral hypoglycemic drugs; Z79.899 Other long term (current) drug therapy
CPT/HCPCS: 36415; 80053; 82550; 85025

== ENCOUNTER 2021-05-07 11:05 | Outpatient (CLI) | payer MEDICARE, OTHER | END 2021-05-07 11:06 | disposition home or self-care (01) | LOC: BICCT 11:05 | PROVIDERS: ATTEND Anesthesiology Pain Medicine | DX: M48.062 Spinal stenosis, lumbar region with neurogenic claudication (principal); M47.816 Spondylosis without myelopathy or radiculopathy, lumbar region; M51.36 Other intervertebral disc degeneration, lumbar region; M43.16 Spondylolisthesis, lumbar region | CPT/HCPCS: 72131 ==

== ENCOUNTER 2021-06-03 14:45 | Outpatient (CLI) | payer MEDICARE, OTHER | END 2021-06-03 14:46 | disposition home or self-care (01) | LOC: RAD-FRANK 14:45 | PROVIDERS: ATTEND Nurse Practitioner Family | DX: S39.012A Strain of muscle, fascia and tendon of lower back, initial encounter (principal); M47.816 Spondylosis without myelopathy or radiculopathy, lumbar region; M43.16 Spondylolisthesis, lumbar region | CPT/HCPCS: 72100 ==

== ENCOUNTER 2021-12-30 15:13 | Outpatient (CLI) | payer MEDICARE, OTHER | END 2021-12-30 15:14 | disposition home or self-care (01) | LOC: RAD-FRANK 15:13 | PROVIDERS: ATTEND Nurse Practitioner Family | DX: M54.50 Low back pain, unspecified (principal); M47.816 Spondylosis without myelopathy or radiculopathy, lumbar region | CPT/HCPCS: 72100 ==

== ENCOUNTER 2022-06-30 11:34 | Outpatient (CLI) | payer MEDICARE, OTHER | END 2022-06-30 11:35 | disposition home or self-care (01) | LOC: RAD-FRANK 11:34 | PROVIDERS: ATTEND Nurse Practitioner Family | DX: M54.50 Low back pain, unspecified (principal); M79.644 Pain in right finger(s); M19.041 Primary osteoarthritis, right hand | CPT/HCPCS: 72100 ==

== ENCOUNTER 2022-07-15 14:23 | Outpatient (CLI) | payer MEDICARE, OTHER | END 2022-07-15 14:24 | disposition home or self-care (01) | LOC: RAD-FRANK 14:23 | PROVIDERS: ATTEND Nurse Practitioner Family | DX: M54.6 Pain in thoracic spine (principal); M47.814 Spondylosis without myelopathy or radiculopathy, thoracic region; M41.9 Scoliosis, unspecified | CPT/HCPCS: 72070 ==

== ENCOUNTER 2022-08-31 09:48 | Emergency (ER) | payer OTHER, MEDICARE ==
[2022-08-31] MEDS ORDERED: HYDROcodone/Acetaminophen 5/325 mg Tablet ONE (10:33)
== END 2022-08-31 11:50 | disposition home or self-care (01) ==
LOC: ERS 09:48
DX: S61.412A Laceration without foreign body of left hand, initial encounter (principal); S61.411A Laceration without foreign body of right hand, initial encounter; S70.00XA Contusion of unspecified hip, initial encounter; D50.9 Iron deficiency anemia, unspecified; E11.40 Type 2 diabetes mellitus with diabetic neuropathy, unspecified; Z79.899 Other long term (current) drug therapy; Z79.82 Long term (current) use of aspirin; Z79.84 Long term (current) use of oral hypoglycemic drugs; V69.9XXA Occupant (driver) (passenger) of heavy transport vehicle injured in unspecified traffic accident, initial encounter
CPT/HCPCS: 70450; 72125; 72170

== ENCOUNTER 2023-02-24 14:29 | Outpatient (CLI) | payer MEDICARE, OTHER | END 2023-02-24 14:30 | disposition home or self-care (01) | LOC: RAD-FRANK 14:29 | PROVIDERS: ATTEND Nurse Practitioner Family | DX: M79.674 Pain in right toe(s) (principal) ==